=== PATIENT | female | born 1975 | race Caucasian/White ===

== ENCOUNTER 2016-10-21 16:29 | Emergency (ER) | payer BC ==
[~2016-10-21] VITALS: Ht 152.4 cm; Wt 40.8 kg
[~2016-10-21 16:29] MED LIST: PRED20TA PO
[2016-10-21 16:51] VITALS: BP 134/75
--- NOTE | 2016-10-21 17:12 | PHYS DOC ---
Past Medical History Past Medical History: Anxiety, Arthritis, Kidney Infection, Kidney Stone Additional Past Medical Histor: lupus Past Surgical History: Alcohol Use: Occasionally Drug Use: None Adult General Chief Complaint Chief Complaint: OTHER COMPLAINTS [facility] HPI Patient is a 41 year old female presents emergency department stating that she' s been bilateral abdominal pain and discomfort. Patient states she has a history of lupus which causes her osteoarthritis to have increased difficulty with movement. Patient states that she's taken 3 oxycodone this morning without any relief. Patient states that she also had a temperature of 102 this morning as well. She denies any nausea vomiting or diarrhea. She does state that she's been seen her primary care physician for pain management. She has also been referred to to the lupus specialist in which she has a follow-up in November. Patient states that she had taken Aleve as well as this morning with no relief. Significant other at the bedside states that he is unable to get her to straighten her arms although she has been able to place her hand down in between bilateral extended knees. Patient does have redness noted on bilateral elbows no drainage or discharge noted. Peripheral pulses 2+ cap refill brisk less than 2 seconds. Patient denies trauma, or injury to the elbows. Review of Systems Review of Systems Constitutional: Denies fever or chills [] Eyes: Denies change in visual acuity, redness, or eye pain [] HENT: Denies nasal congestion or sore throat [] Respiratory: Denies cough or shortness of breath [] Cardiovascular: No additional information not addressed in HPI [] GI: Denies abdominal pain, nausea, vomiting, bloody stools or diarrhea [] : Denies dysuria or hematuria [] Musculoskeletal: Denies back pain. Bilateral elbow pain and discomfort Integument: Denies rash or skin lesions [] Neurologic: Denies headache, focal weakness or sensory changes [] Current Medications Current Medications Current Medications Medications (Trade) Dose Ordered Sig/[facility] Start Time Stop Time Status Last Admin Dose Admin Morphine Sulfate 4 mg 1X ONCE 10/21/16 17:15 10/21/16 17:16 DC 10/21/16 17:22 4 MG Allergies Allergies Allergies Coded Allergies Type Severity Reaction Last Updated Verified No Known Drug Allergies 10/21/16 No Physical Exam Physical Exam Constitutional: Well developed, well nourished, no acute distress, non-toxic appearance. [] HENT: Normocephalic, atraumatic, bilateral external ears normal, oropharynx moist, no oral exudates, nose normal. [] Eyes: PERRLA, EOMI, conjunctiva normal, no discharge. [] Neck: Normal range of motion, no tenderness, supple, no stridor. [] Cardiovascular:Heart rate regular rhythm, no murmur [] Lungs & Thorax: Bilateral breath sounds clear to auscultation [] [] Skin: Warm, dry, no erythema, no rash. [] Back: No tenderness Extremities: Bilateral elbow tenderness, no cyanosis, no clubbing, ROM intact, no edema. Slight redness noted on bilateral elbows. No drainage or discharge from the sites. He is to feel extremely warm. Patient does have full range of motion of the elbows. This 2+ cap refill brisk less than 2 seconds. Neurologic: Alert and oriented X 3, normal motor function, normal sensory function, no focal deficits noted. [] Psychologic: Affect normal, judgement normal, mood normal. [] Current Patient Data Vital Signs Vital Signs Date Time Temp Pulse Resp B/P Pulse Ox O2 Delivery O2 Flow Rate FiO2 10/21/16 16:51 98.0 77 20 100 Room Air 98.0 Lab Values Laboratory Tests Test 10/21/16 17:15 White Blood Count 10.1x10^3/uL (4.0-11.0) Red Blood Count 4.41x10^6/uL (3.50-5.40) Hemoglobin 10.6g/dL (12.0-15.5) L Hematocrit 35.3% (36.0-47.0) L Mean Corpuscular Volume 80fL (79-100) Mean Corpuscular Hemoglobin 24pg (25-35) L Mean Corpuscular Hemoglobin Concent 30g/dL (31-37) L Red Cell Distribution Width 19.7% (11.5-14.5) H Platelet Count 291x10^3/uL (140-400) Neutrophils (%) (Auto) 90% (31-73) H Lymphocytes (%) (Auto) 7% (24-48) L Monocytes (%) (Auto) 2% (0-9) Eosinophils (%) (Auto) 0% (0-3) Basophils (%) (Auto) 0% (0-3) Neutrophils # (Auto) 9.1x10^3uL (1.8-7.7) H Lymphocytes # (Auto) 0.8x10^3/uL (1.0-4.8) L Monocytes # (Auto) 0.2x10^3/uL (0.0-1.1) Eosinophils # (Auto) 0.0x10^3/uL (0.0-0.7) Basophils # (Auto) 0.0x10^3/uL (0.0-0.2) Platelet Estimate Pending Erythrocyte Sedimentation Rate 75 (0-25) H C-Reactive Protein, Quantitative 83.9mg/L (0-3.3) H Laboratory Tests 10/21/16 17:15 EKG EKG [] Radiology/Procedures Radiology/Procedures [] Course & Med Decision Making Course & Med Decision Making Pertinent Labs and Imaging studies reviewed. (See chart for details) Patient was asleep upon entering the room. She is easily awakened. Patient's CBC with a white count normal hemoglobin and hematocrit are slightly low although this is comparable to previous CBCs in the past. Patient does have a history of anemia probably secondary to chronic medical conditions. Patient's sedimentation rate and CRP are both elevated. I suspect the patient is having a flareup of her lupus. Patient states that she is taking 10 mg of prednisone at home. She does have asked the coded at home in which she can take for pain and discomfort. Recommended nonsteroidal anti-inflammatories. Patient will be discharged home with recommendations to follow-up with her primary care physician in the next 3-5 days. Signs and symptoms to return back to emergency department been provided. [] Dragon Disclaimer Dragon Disclaimer This electronic medical record was generated, in whole or in part, using a voice recognition dictation system. Departure Departure Impression: Primary Impression: Exacerbation of systemic lupus Disposition: HOME, SELF-CARE Condition: STABLE Referrals: TORIBIO TINOCO MD (PCP) Patient Instructions: Chronic Pain, Lupus Additional Instructions: You have been evaluated for your bilateral elbow pain and discomfort. Your sed rate was elevated your CRP lab work was elevated identifying that you are having a flareup of your lupus. You have also been provided with morphine here in the emergency department for pain control. It is recommended that you continue to use her home medications for pain. You may also use naproxen as prescribed. Make sure you take this medication with food as it may cause an upset stomach. If this develops stop taking the medication. Follow-up with your primary care physician next 3-5 days. Return back to the emergency department for signs and symptoms of become worse. Scripts Naproxen 500 Mg Tablet1 Tab PO BID #60 TAB Prov:SARAH LEYVA APRN 10/21/16 SARAH LEYVA APRN Oct 21, 2016 17:12
[2016-10-21] MEDS ORDERED: MORPHINE SULFATE 4 MG/ML DISP.SYRIN. IM ONE (17:15)
[2016-10-21 17:21] LABS: BASO % 0 % (0-3); EOS % 0 % (0-3); HEMATOCRIT 35.3 % (36.0-47.0); HEMOGLOBIN 10.6 g/dL (12.0-15.5); LYMPH # 0.8 x10^3/uL (1.0-4.8); LYMPH % 7 % (24-48); MEAN CORPUSCULAR HEMOGLOBIN 24 pg (25-35); MEAN CORPUSCULAR HGB CONC 30 g/dL (31-37); MEAN CORPUSCULAR VOLUME 80 fL (79-100); MONO % 2 % (0-9); NEUT % 90 % (31-73); PLATELET COUNT 291 x10^3/uL (140-400); RED BLOOD COUNT 4.41 x10^6/uL (3.50-5.40); RED CELL DISTRIBUTION WIDTH 19.7 % (11.5-14.5); WHITE BLOOD COUNT 10.1 x10^3/uL (4.0-11.0)
[2016-10-21] MEDS ORDERED: NAPR500T3 PO (18:55)
[2016-10-21 19:32] LABS: ANISOCYTOSIS SLIGHT; HYPOCHROMIA SLIGHT; OVALOCYTES OCC; PLT ESTIMATE ADEQUATE (ADEQUATE); POLYCHROMASIA SLIGHT
== END 2016-10-21 19:02 | disposition home or self-care (01) ==
LOC: ER 16:29
DX: M32.9 Systemic lupus erythematosus, unspecified (principal); M19.90 Unspecified osteoarthritis, unspecified site
CPT/HCPCS: 36415; 85007; 85027; 85651; 86140; 96372; 99284; J2270

== ENCOUNTER 2017-03-25 19:44 | Emergency (ER) | payer BC ==
[~2017-03-25] VITALS: Ht 152.4 cm; Wt 40.4 kg
[~2017-03-25 19:44] MED LIST changes: +NAPR500T3 PO
[2017-03-25 20:02] VITALS: BP 87/56
[2017-03-25] MEDS ORDERED: DIPHTH,PERTUSS(ACELL),TET TOX 0.5 ML DISP.SYRIN. VAX IM ONE (20:30)
[2017-03-25] MEDS ORDERED: LIDOCAINE 1% / SOD BICARB 8.4% 20 ML VIAL. IJ ONE (20:30)
[2017-03-25] MEDS ORDERED: CEPH500C PO (21:55)
--- NOTE | 2017-03-25 21:56 | PHYS DOC ---
Past Medical History Past Medical History: Anxiety, Arthritis, Kidney Infection, Kidney Stone Additional Past Medical Histor: lupus Past Surgical History: Alcohol Use: Occasionally Drug Use: None Adult General Chief Complaint Chief Complaint: LACERATION/AVULSION HPI HPI Patient is a 41 year old female who presents with with history of lupus currently on infusions who presents today with left palm laceration. Patient cut herself accidentally on a ladder bolt, she is right handed. Review of Systems Review of Systems Constitutional: Denies fever or chills [] Musculoskeletal: Denies back pain or joint pain [] Integument: left palm laceration Neurologic: Denies headache, focal weakness or sensory changes [] Current Medications Current Medications Current Medications Medications (Trade) Dose Ordered Sig/Keo Start Time Stop Time Status Last Admin Dose Admin Diphtheria/ Tetanus/Acell Pertussis (Boostrix) 0.5 ml ONCE ONCE 03/25/17 20:30 03/25/17 20:31 DC 03/25/17 20:32 0.5 ML Lidocaine/Sodium Bicarbonate (Buffered Lidocaine 1%) 20 ml 1X ONCE 03/25/17 20:30 03/25/17 20:31 DC 03/25/17 20:31 20 ML Allergies Allergies Allergies Coded Allergies Type Severity Reaction Last Updated Verified No Known Drug Allergies 10/21/16 No Physical Exam Physical Exam Constitutional: Well developed, well nourished, no acute distress, non-toxic appearance. [] Skin: Left hypothenar with a laceration approximately 3 cm long, there is no tendon involvement. Full range of motion to the left hand and fingers. +2 left radial pulse. Adequate radial medial and ulnar sensation to the left hand. Back: No tenderness, no CVA tenderness. [] Extremities: No tenderness, no cyanosis, no clubbing, ROM intact, no edema. [] Neurologic: Alert and oriented X 3, normal motor function, normal sensory function, no focal deficits noted. [] Psychologic: Affect normal, judgement normal, mood normal. [] Current Patient Data Vital Signs Vital Signs Date Time Temp Pulse Resp B/P (MAP) Pulse Ox O2 Delivery O2 Flow Rate FiO2 03/25/17 20:02 98.2 80 20 99 Room Air 98.2 EKG EKG [] Radiology/Procedures Radiology/Procedures Indication: Left palm laceration Procedure: The patient was placed in the appropriate position and anesthesia around the laceration was 1% buffered lidocaine, the area was explored for foreign objects, none was found. The area was then cleaned with the 100 ML of normal saline and Betadine. The laceration was closed with 9 interrupted sutures using 5. 0 Ethilon. The wound was covered with nonstick dressing Total repaired wound length: Approximately 3 cm long Other Items: none The patient tolerated the procedure well Complications: none Course & Med Decision Making Course & Med Decision Making Pertinent Labs and Imaging studies reviewed. (See chart for details) Patient has left hand laceration that was closed by me as noted in procedures. Discharged on cephalexin because she has lupus and she is currently on infusions. Provided wound care instructions as well as return precautions. Dragon Disclaimer Dragon Disclaimer This electronic medical record was generated, in whole or in part, using a voice recognition dictation system. Departure Departure Impression: Primary Impression: Laceration of left hand Disposition: HOME, SELF-CARE Condition: STABLE Referrals: TORIBIO TINOCO MD (PCP) Have the stitches removed in 7-10 days Patient Instructions: Laceration Care, Adult, [id number] Additional Instructions: You were seen for left hand laceration. Keep the area clean and dry. We closed the laceration with stitches. Apply Neosporin to the area twice a day. You can shower. Take cephalexin until completed. Monitor the area for signs and symptoms of infection including but not limited to increased redness to the area ,warmth or yellow drainage from the area and follow-up with your doctor or return to the ED if they occur. Scripts Cephalexin (CEPHALEXIN) 500 Mg Capsule 1 CAP PO QID, #40 CAP Prov: ZOHAIB ALFREDO APRN 03/25/17 Problem Qualifiers Primary Impression: Laceration of left hand Encounter type: initial encounter Foreign body presence: without foreign body Qualified Codes: S61.412A - Laceration without foreign body of left hand , initial encounter ZOHAIB ALFREDO APRN Mar 25, 2017 21:56
== END 2017-03-25 22:06 | disposition home or self-care (01) ==
LOC: ER 19:44
DX: S61.412A Laceration without foreign body of left hand, initial encounter (principal); F41.9 Anxiety disorder, unspecified; M32.9 Systemic lupus erythematosus, unspecified; M19.90 Unspecified osteoarthritis, unspecified site; W26.8XXA Contact with other sharp object(s), not elsewhere classified, initial encounter; Y93.89 Activity, other specified; Y92.89 Other specified places as the place of occurrence of the external cause; Y99.8 Other external cause status
CPT/HCPCS: 12002; 90471; 90715; 99283-25

== ENCOUNTER 2017-11-10 08:35 | Emergency (ER) | payer BC ==
[2017-11-10] MEDS: IV NORMAL SALINE 500ML BAG 500 ML IV (09:04)
[2017-11-10 09:11] LABS: ADD MAN DIFF? NO
[2017-11-10 09:32] LABS: ANION GAP 13 (6-14); BLOOD UREA NITROGEN 12 mg/dL (7-20); CALCIUM 9.4 mg/dL (8.5-10.1); CARBON DIOXIDE 21 mmol/L (21-32); CHLORIDE 104 mmol/L (98-107); CREATININE 1.2 mg/dL (0.6-1.0); GLUCOSE 150 mg/dL (70-99); POTASSIUM 3.7 mmol/L (3.5-5.1); SODIUM 138 mmol/L (136-145)
[2017-11-10 09:38] LABS: ALBUMIN 3.3 g/dL (3.4-5.0); ALK PHOS 106 U/L (46-116); ALT (SGPT) 16 U/L (14-59); AST (SGOT) 14 U/L (15-37); DIRECT BILIRUBIN 0.1 mg/dL (0.0-0.2); LIPASE 368 U/L (73-393); TOTAL BILIRUBIN 0.2 mg/dL (0.2-1.0); TOTAL PROTEIN 8.1 g/dL (6.4-8.2)
[2017-11-10 09:47] LABS: BASO % 0 % (0-3); EOS # 0.1 x10^3/uL (0.0-0.7); EOS % 1 % (0-3); HEMATOCRIT 38.2 % (36.0-47.0); HEMOGLOBIN 10.9 g/dL (12.0-15.5); LYMPH # 1.5 x10^3/uL (1.0-4.8); LYMPH % 10 % (24-48); MEAN CORPUSCULAR HEMOGLOBIN 19 pg (25-35); MEAN CORPUSCULAR HGB CONC 29 g/dL (31-37); MEAN CORPUSCULAR VOLUME 66 fL (79-100); MONO # 0.7 x10^3/uL (0.0-1.1); MONO % 5 % (0-9); NEUT # 12.3 x10^3uL (1.8-7.7); NEUT % 85 % (31-73); PLATELET COUNT 415 x10^3/uL (140-400); RED BLOOD COUNT 5.75 x10^6/uL (3.50-5.40); RED CELL DISTRIBUTION WIDTH 23.1 % (11.5-14.5); WHITE BLOOD COUNT 14.6 x10^3/uL (4.0-11.0)
[2017-11-10 09:48] LABS: TROPONINI < 0.017 ng/mL (0.000-0.055)
[2017-11-10 10:20] LABS: PLT ESTIMATE INCREASED (ADEQUATE)
[2017-11-10 10:21] LABS: ANISOCYTOSIS MOD; MICROCYTOSIS PRESENT; POLYCHROMASIA SLIGHT
== END 2017-11-10 10:55 | disposition home or self-care (01) ==
LOC: ER 08:35
DX: R05 Cough (principal); F41.9 Anxiety disorder, unspecified; R00.0 Tachycardia, unspecified; M06.9 Rheumatoid arthritis, unspecified; Z87.442 Personal history of urinary calculi
CPT/HCPCS: 36415; 71045; 80048; 80076; 83690; 84484; 85025; 93005; 99285-25; J7040

== ENCOUNTER 2019-03-20 16:14 | Emergency (ER) | payer BC ==
[~2019-03-20] VITALS: Ht 152.4 cm; Wt 43.1 kg
[~2019-03-20 16:14] MED LIST changes: +ALBU2.5V8 INH; +CEPH500C PO; +DOXY100C14 PO; +NAPR-514 PO; -NAPR500T3 PO
[2019-03-20 16:29] VITALS: BP 102/58
[2019-03-20] MEDS ORDERED: HYDROcodone/APAP 5/325MG 1 TAB TABLET PO ONE (16:45)
--- NOTE | 2019-03-20 16:47 | PHYS DOC ---
Past Medical History Past Medical History: Anxiety, Arthritis, Kidney Infection, Kidney Stone Additional Past Medical Histor: lupus Past Surgical History: Alcohol Use: Occasionally Drug Use: None Adult General Chief Complaint Chief Complaint: HAND PROBLEM HPI HPI Patient is a 43 year old [female] who presents with []right hand pain. Patient reports her family member had gotten a new car, she had her hand on the door, when the door closed, pinching between her hand between the door and the car. Reports it occurred one hour ago the pain continues at this time. States she has not taken any medications for it, she has been using an icepack, which does seem to be helping a little bit. Review of Systems Review of Systems Constitutional: Denies fever or chills [] Respiratory: Denies cough or shortness of breath [] Cardiovascular: No additional information not addressed in HPI [] Musculoskeletal: Denies back pain or joint pain, reports pain to right hand, near 2nd and 3rd digit [] Integument: Denies rash or skin lesions [] Neurologic: Denies focal weakness or sensory changes [] All other systems were reviewed and found to be within normal limits, except as documented in this note. Current Medications Current Medications Current Medications Medications (Trade) Dose Ordered Sig/Keo Start Time Stop Time Status Last Admin Dose Admin Acetaminophen/ Hydrocodone Bitart (Lortab 5/325) 1 tab 1X ONCE 03/20/19 16:45 03/20/19 16:46 DC 03/20/19 17:01 1 TAB Allergies Allergies Allergies Coded Allergies Type Severity Reaction Last Updated Verified No Known Drug Allergies 11/10/17 No Physical Exam Physical Exam Constitutional: Well developed, well nourished, no acute distress, appears uncomfortable, non-toxic appearance. [] Abdomen: Bowel sounds normal, soft, no tenderness, no masses, no pulsatile masses. [] Skin: Warm, dry, no erythema, generalized rash. Small amount of bleeding noted palmar at base of fingers.capillary refill brisk. sensation intact. [] Back: No tenderness, no CVA tenderness. [] Extremities: No tenderness, no cyanosis, no clubbing,. Swelling noted to index and middle finger at base of hand, with bruising, tenderness. [] Neurologic: Alert and oriented X 3, normal motor function, normal sensory function, no focal deficits noted. [] Psychologic: Affect normal, judgement normal, mood normal. [] Current Patient Data Vital Signs Vital Signs Date Time Temp Pulse Resp B/P (MAP) Pulse Ox O2 Delivery O2 Flow Rate FiO2 03/20/19 17:01 18 97 03/20/19 16:29 98.7 63 102/58 (73) Room Air 98.7 EKG EKG [] Radiology/Procedures Radiology/Procedures AP lateral oblique views The visualized osseous structures appear normal. IMPRESSION: No acute findings. Electronically signed by: Melissa Ventura III, MD (03/20/2019 5:03 PM) [id number] DICTATED and SIGNED BY: MELISSA VENTURA III, MD DATE: 03/20/19 [id number] [] Course & Med Decision Making Course & Med Decision Making Pertinent Labs and Imaging studies reviewed. (See chart for details) [Discussed findings with patient, with no noted fractures. Discussed follow up with PCP, use of ice, ibuprofen, tylenol. Patient in agreement with plan. Discussed abrasions on hand without active bleeding noted now, recommend keep clean. ] Dragon Disclaimer Dragon Disclaimer This electronic medical record was generated, in whole or in part, using a voice recognition dictation system. Departure Departure Impression: Primary Impression: Right hand pain Disposition: 01 HOME, SELF-CARE Condition: GOOD Referrals: DANIA PANDEY MD (PCP) Patient Instructions: Contusion Additional Instructions: Continue to use the ice pack. Use tylenol/ibuprofen for discomfort Clean your hand with soap and water, you do not need any stitches in your hand today Follow up with your primary care provider as needed DAVID DOHERTY APRN Mar 20, 2019 16:47
--- NOTE | 2019-03-20 17:06 | RAD ---
3 views right hand HISTORY: Crush injury AP lateral oblique views The visualized osseous structures appear normal. IMPRESSION: No acute findings. Electronically signed by: John Ventura III, MD (03/20/2019 5:03 PM) [id number]
== END 2019-03-20 17:53 | disposition home or self-care (01) ==
LOC: ER 16:14
DX: S60.221A Contusion of right hand, initial encounter (principal); W23.0XXA Caught, crushed, jammed, or pinched between moving objects, initial encounter; Y93.89 Activity, other specified; Y92.89 Other specified places as the place of occurrence of the external cause; Y99.8 Other external cause status
CPT/HCPCS: 73130; 99284

== ENCOUNTER 2019-07-02 00:29 | Emergency (ER) | payer BC ==
[~2019-07-02] VITALS: Ht 152.4 cm; Wt 42.6 kg
[2019-07-02 01:13] LABS: BILIRUBIN,URINE NEGATIVE (NEG); CLARITY,URINE CLEAR; COLOR,URINE YELLOW; NITRITE,URINE NEGATIVE (NEG); PROTEIN,URINE NEGATIVE (NEG-TRACE); UROBILINOGEN,URINE 0.2 mg/dL (0.2 mg/dL)
[2019-07-02 01:24] LABS: BASO % 1 % (0-3); EOS # 0.1 x10^3/uL (0.0-0.7); EOS % 4 % (0-3); HEMATOCRIT 45.7 % (36.0-47.0); HEMOGLOBIN 15.2 g/dL (12.0-15.5); LYMPH # 1.1 x10^3/uL (1.0-4.8); LYMPH % 36 % (24-48); MEAN CORPUSCULAR HEMOGLOBIN 32 pg (25-35); MEAN CORPUSCULAR HGB CONC 33 g/dL (31-37); MEAN CORPUSCULAR VOLUME 95 fL (79-100); MONO # 0.3 x10^3/uL (0.0-1.1); MONO % 9 % (0-9); NEUT # 1.5 x10^3/uL (1.8-7.7); NEUT % 50 % (31-73); PLATELET COUNT 167 x10^3/uL (140-400); RED BLOOD COUNT 4.83 x10^6/uL (3.50-5.40)
[2019-07-02 01:26] LABS: U PREG PATIENT NEGATIVE (NEG)
[2019-07-02 01:29] LABS: BACTERIA,URINE FEW /HPF (0-FEW); SQUAMOUS EPITHELIAL CELL,UR FEW /LPF
[2019-07-02] MEDS ORDERED: KETOROLAC 15 MG/ML VIAL. IVP ONE (01:30)
[2019-07-02] MEDS ORDERED: IV NORMAL SALINE 1000ML BAG 1,000 ML IV ONE (01:30)
[2019-07-02] MEDS ORDERED: fentaNYL PF VIAL 100 MCG/2 ML VIAL IVP ONE (01:30)
[2019-07-02] MEDS ORDERED: METOCLOPRAMIDE HCL 10 MG/2 ML VIAL. IVP ONE (01:30)
[2019-07-02 01:32] LABS: CALCIUM 9.3 mg/dL (8.5-10.1); POTASSIUM 3.2 mmol/L (3.5-5.1)
[2019-07-02 01:38] LABS: ALBUMIN 2.9 g/dL (3.4-5.0); ALBUMIN/GLOBULIN RATIO 0.6 (1.0-1.7); MAGNESIUM 2.2 mg/dL (1.8-2.4); TOTAL BILIRUBIN 0.1 mg/dL (0.2-1.0); TOTAL PROTEIN 7.9 g/dL (6.4-8.2)
--- NOTE | 2019-07-02 01:49 | PHYS DOC ---
Past Medical History Past Medical History: Anxiety, Arthritis, Kidney Infection, Kidney Stone Additional Past Medical Histor: lupus Past Surgical History: No Surgical History, , Tubal ligation Alcohol Use: Occasionally Drug Use: None Adult General Chief Complaint Chief Complaint: FLANK PAIN HPI HPI Patient is a 44 year old [f__sex] who presents with [] Review of Systems Review of Systems Constitutional: Denies fever or chills [] Eyes: Denies change in visual acuity, redness, or eye pain [] HENT: Denies nasal congestion or sore throat [] Respiratory: Denies cough or shortness of breath [] Cardiovascular: No additional information not addressed in HPI [] GI: Denies abdominal pain, nausea, vomiting, bloody stools or diarrhea [] : Denies dysuria or hematuria [] Musculoskeletal: Denies back pain or joint pain [] Integument: Denies rash or skin lesions [] Neurologic: Denies headache, focal weakness or sensory changes [] Endocrine: Denies polyuria or polydipsia [] All other systems were reviewed and found to be within normal limits, except as documented in this note. Current Medications Current Medications Current Medications Medications (Trade) Dose Ordered Sig/Keo Start Time Stop Time Status Last Admin Dose Admin Ceftriaxone Sodium (Rocephin) 1 gm 1X ONCE 07/02/19 02:00 07/02/19 02:01 Fentanyl Citrate (Fentanyl 2ml Vial) 50 mcg 1X ONCE 07/02/19 01:30 07/02/19 01:31 DC 07/02/19 01:23 50 MCG Ketorolac Tromethamine (Toradol 15mg Vial) 15 mg 1X ONCE 07/02/19 01:30 07/02/19 01:31 DC 07/02/19 01:24 15 MG Metoclopramide HCl (Reglan Vial) 10 mg 1X ONCE 07/02/19 01:30 07/02/19 01:31 DC 07/02/19 01:23 10 MG Sodium Chloride 1,000 ml @ 1,000 mls/hr 1X ONCE 07/02/19 01:30 07/02/19 02:29 07/02/19 01:23 1,000 MLS/HR Allergies Allergies Allergies Coded Allergies Type Severity Reaction Last Updated Verified No Known Drug Allergies 11/10/17 No Physical Exam Physical Exam Constitutional: Well developed, well nourished, no acute distress, non-toxic appearance. [] HENT: Normocephalic, atraumatic, bilateral external ears normal, oropharynx m oist, no oral exudates, nose normal. [] Eyes: PERRLA, EOMI, conjunctiva normal, no discharge. [] Neck: Normal range of motion, no tenderness, supple, no stridor. [] Cardiovascular:Heart rate regular rhythm, no murmur [] Lungs & Thorax: Bilateral breath sounds clear to auscultation [] Abdomen: Bowel sounds normal, soft, no tenderness, no masses, no pulsatile masses. [] Skin: Warm, dry, no erythema, no rash. [] Back: No tenderness, no CVA tenderness. [] Extremities: No tenderness, no cyanosis, no clubbing, ROM intact, no edema. [] Neurologic: Alert and oriented X 3, normal motor function, normal sensory function, no focal deficits noted. [] Psychologic: Affect normal, judgement normal, mood normal. [] Current Patient Data Vital Signs Vital Signs Date Time Temp Pulse Resp B/P (MAP) Pulse Ox O2 Delivery O2 Flow Rate FiO2 07/02/19 00:50 97.8 89 20 119/82 (94) 97 Room Air 97.8 Lab Values Laboratory Tests Test 07/02/19 00:36 07/02/19 01:15 Urine Collection Type Unknown Urine Color Yellow Urine Clarity Clear Urine pH 7.0 Urine Specific [place] 1.010 Urine Protein Negative mg/dL (NEG-TRACE) Urine Glucose (UA) Negative mg/dL (NEG) Urine Ketones (Stick) Negative mg/dL (NEG) Urine Blood Moderate (NEG) Urine Nitrite Negative (NEG) Urine Bilirubin Negative (NEG) Urine Urobilinogen Dipstick 0.2 mg/dL (0.2 mg/dL) Urine Leukocyte Esterase Moderate (NEG) Urine RBC 11-20 /HPF (0-2) Urine WBC 11-20 /HPF (0-4) Urine Squamous Epithelial Cells Few /LPF Urine Bacteria Few /HPF (0-FEW) Urine Mucus Slight /LPF Urine Test Negative (NEG) White Blood Count 3.0 x10^3/uL (4.0-11.0) L Red Blood Count 4.83 x10^6/uL (3.50-5.40) Hemoglobin 15.2 g/dL (12.0-15.5) Hematocrit 45.7 % (36.0-47.0) Mean Corpuscular Volume 95 fL (79-100) Mean Corpuscular Hemoglobin 32 pg (25-35) Mean Corpuscular Hemoglobin Concent 33 g/dL (31-37) Red Cell Distribution Width 14.0 % (11.5-14.5) Platelet Count 167 x10^3/uL (140-400) Neutrophils (%) (Auto) 50 % (31-73) Lymphocytes (%) (Auto) 36 % (24-48) Monocytes (%) (Auto) 9 % (0-9) Eosinophils (%) (Auto) 4 % (0-3) H Basophils (%) (Auto) 1 % (0-3) Neutrophils # (Auto) 1.5 x10^3/uL (1.8-7.7) L Lymphocytes # (Auto) 1.1 x10^3/uL (1.0-4.8) Monocytes # (Auto) 0.3 x10^3/uL (0.0-1.1) Eosinophils # (Auto) 0.1 x10^3/uL (0.0-0.7) Basophils # (Auto) 0.0 x10^3/uL (0.0-0.2) Sodium Level 140 mmol/L (136-145) Potassium Level 3.2 mmol/L (3.5-5.1) L Chloride Level 107 mmol/L (98-107) Carbon Dioxide Level 19 mmol/L (21-32) L Anion Gap 14 (6-14) Blood Urea Nitrogen 17 mg/dL (7-20) Creatinine 1.0 mg/dL (0.6-1.0) Estimated GFR (Cockcroft-Gault) 60.0 BUN/Creatinine Ratio 17 (6-20) Glucose Level 117 mg/dL (70-99) H Calcium Level 9.3 mg/dL (8.5-10.1) Magnesium Level 2.2 mg/dL (1.8-2.4) Total Bilirubin 0.1 mg/dL (0.2-1.0) L Aspartate Amino Transferase (AST) 14 U/L (15-37) L Alanine Aminotransferase (ALT) 8 U/L (14-59) L Alkaline Phosphatase 93 U/L (46-116) Total Protein 7.9 g/dL (6.4-8.2) Albumin 2.9 g/dL (3.4-5.0) L Albumin/Globulin Ratio 0.6 (1.0-1.7) L Lipase 151 U/L (73-393) Laboratory Tests 07/02/19 01:15 Laboratory Tests 07/02/19 01:15 EKG EKG [] Radiology/Procedures Radiology/Procedures PROCEDURE: CT ABDOMEN PELVIS WO CONTRAST INDICATION: Left flank pain EXAM: Noncontrast CT of the abdomen and pelvis. Coronal and sagittal reformatted images were performed. PQRS compliance statement: One or more of the following individualized dose reduction techniques were utilized for this examination: 1. Automated exposure control 2. Adjustment of the mA and/or kV according to patient size 3. Use of iterative reconstruction technique COMPARISON: None FINDINGS: No free air, free fluid, or fluid collection. Lower chest: The visualized lower lungs are aerated. No pleural or pericardial effusion. ABDOMEN: Liver: The noncontrast liver is homogeneous in attenuation. Gallbladder and biliary: Cholelithiasis. Normal caliber bile ducts. Spleen: Normal spleen. Pancreas: The noncontrast pancreas is homogeneous in attenuation without peripancreatic inflammatory changes. Adrenal glands: Normal adrenal glands. Kidneys and ureters: Bilateral medullary nephrocalcinosis. GI tract: The stomach is decompressed and poorly evaluated. Normal caliber small bowel and colon. Normal appendix. Moderate colonic stool burden. Vascular structures: Normal caliber abdominal aorta. Lymph nodes: No lymphadenopathy in the abdomen or pelvis. PELVIS: Genitourinary system: Normal bladder. Uterus is present. SKELETAL STRUCTURES AND SOFT TISSUES: Serpiginous subchondral sclerosis along the bilateral femoral heads. IMPRESSION: 1. No hydronephrosis or opaque urinary calculi. Bilateral medullary nephrocalcinosis. 2. Moderate colonic stool burden, which may reflect constipation. 3. Cholelithiasis. 4. Avascular necrosis of the hips. Electronically signed by: Chaz Nails MD (07/02/2019 1:49 AM) [facility] Course & Med Decision Making Course & Med Decision Making Pertinent Labs and Imaging studies reviewed. (See chart for details) [] Dragon Disclaimer Dragon Disclaimer This electronic medical record was generated, in whole or in part, using a voice recognition dictation system. Departure Departure Impression: Primary Impression: Pyelonephritis Additional Impressions: Hypokalemia Neutropenia Constipation Disposition: 01 HOME, SELF-CARE Condition: STABLE Referrals: DANIA PANDEY MD (PCP) Patient Instructions: Constipation, Adult, [id number], Hypokalemia-Brief, Neutropenia, Potassium Content of Foods, Pyelonephritis, Adult, [id number] Scripts Polyethylene Glycol 3350 (MIRALAX) 17 Gm Powd.pack 1 PACKET PO DAILY PRN for CONSTIPATION, #10 PACKET 0 Refills dissolve in water Prov: SHAE BETANCOURT DO 07/02/19 Sennosides/Docusate Sodium (Colace 2-in-1 Tablet) 1 Each Tablet 1 TAB PO QHS for 30 Days, #30 TAB 0 Refills Prov: SHAE BETANCOURT DO 07/02/19 Cephalexin (KEFLEX) 500 Mg Capsule 500 MG PO TID for 7 Days, #21 CAP Prov: SHAE BETANCOURT DO 07/02/19 Problem Qualifiers Additional Impressions: Neutropenia Neutropenia type: unspecified Qualified Codes: D70.9 - Neutropenia, unsp ecified Constipation Constipation type: unspecified constipation type Qualified Codes: K59.00 - Constipation, unspecified SHAE BETANCOURT DO Jul 02, 2019 01:49
--- NOTE | 2019-07-02 01:52 | RAD ---
CT ABDOMEN PELVIS WO CONTRAST INDICATION: Left flank pain EXAM: Noncontrast CT of the abdomen and pelvis. Coronal and sagittal reformatted images were performed. PQRS compliance statement: One or more of the following individualized dose reduction techniques were utilized for this examination: 1. Automated exposure control 2. Adjustment of the mA and/or kV according to patient size 3. Use of iterative reconstruction technique COMPARISON: None FINDINGS: No free air, free fluid, or fluid collection. Lower chest: The visualized lower lungs are aerated. No pleural or pericardial effusion. ABDOMEN: Liver: The noncontrast liver is homogeneous in attenuation. Gallbladder and biliary: Cholelithiasis. Normal caliber bile ducts. Spleen: Normal spleen. Pancreas: The noncontrast pancreas is homogeneous in attenuation without peripancreatic inflammatory changes. Adrenal glands: Normal adrenal glands. Kidneys and ureters: Bilateral medullary nephrocalcinosis. GI tract: The stomach is decompressed and poorly evaluated. Normal caliber small bowel and colon. Normal appendix. Moderate colonic stool burden. Vascular structures: Normal caliber abdominal aorta. Lymph nodes: No lymphadenopathy in the abdomen or pelvis. PELVIS: Genitourinary system: Normal bladder. Uterus is present. SKELETAL STRUCTURES AND SOFT TISSUES: Serpiginous subchondral sclerosis along the bilateral femoral heads. IMPRESSION: 1. No hydronephrosis or opaque urinary calculi. Bilateral medullary nephrocalcinosis. 2. Moderate colonic stool burden, which may reflect constipation. 3. Cholelithiasis. 4. Avascular necrosis of the hips. Electronically signed by: Chaz Nails MD (07/02/2019 1:49 AM) [id number]
[2019-07-02] MEDS ORDERED: POLY17PO29 PO (01:59)
[2019-07-02] MEDS ORDERED: CEPH-264 PO (01:59)
[2019-07-02] MEDS ORDERED: SENN-121 PO (01:59)
[2019-07-02 02:00] VITALS: BP 106/71
[2019-07-02] MEDS ORDERED: cefTRIAXone IV Push 1 GM VIAL. IVP ONE (02:00)
[2019-07-02] MEDS ORDERED: POTASSIUM CHLORIDE 20 MEQ TABLET.ER. PO ONE (02:30)
== END 2019-07-02 02:18 | disposition home or self-care (01) ==
LOC: ER 00:29
DX: N12 Tubulo-interstitial nephritis, not specified as acute or chronic (principal); E87.6 Hypokalemia; D70.9 Neutropenia, unspecified; K59.00 Constipation, unspecified; F41.9 Anxiety disorder, unspecified; M19.90 Unspecified osteoarthritis, unspecified site; N15.9 Renal tubulo-interstitial disease, unspecified; Z87.442 Personal history of urinary calculi; Z98.890 Other specified postprocedural states; Z98.51 Tubal ligation status; Z79.899 Other long term (current) drug therapy
CPT/HCPCS: 36415; 74176; 80053; 81001; 81025; 83690; 83735; 85025; 87086; 96374; 96375; 99285; J0696; J1885; J2765; J3010; J7030

== ENCOUNTER 2019-09-21 16:28 | Emergency (ER) | payer BC ==
[~2019-09-21] VITALS: Ht 152.4 cm; Wt 38.6 kg
[~2019-09-21 16:28] MED LIST changes: +CEPH-264 PO; +POLY17PO29 PO; +SENN-121 PO
[2019-09-21 17:02] VITALS: BP 129/77
--- NOTE | 2019-09-21 17:25 | PHYS DOC ---
Past Medical History Past Medical History: Anxiety, Arthritis, Kidney Infection, Kidney Stone Additional Past Medical Histor: lupus Past Surgical History: , Tubal ligation Smoking Status: Current Every Day Smoker Alcohol Use: Occasionally Drug Use: None Adult General Chief Complaint Chief Complaint: HAND PROBLEM HPI HPI Patient is a 44 year old female with a history of anxiety, asthma, lupus, who presents to the ED today complaining of 5 out of 10 right hand vein swelling that began this afternoon. Patient's is doing most of the speaking, he states patient is on treatment for lupus and the doctor had told him if she has any pain swelling to the hand to come to the hospital and be checked for blood clot. also states they did a google search which showed patient could have a blood clot to the right upper extremity. Patient denies any injury. She is not giving me much information. She appears sleepy. Review of Systems Review of Systems Constitutional: Denies fever or chills [] Eyes: Denies change in visual acuity, redness, or eye pain [] HENT: Denies nasal congestion or sore throat [] Respiratory: Denies cough or shortness of breath [] Cardiovascular: No additional information not addressed in HPI [] GI: Denies abdominal pain, nausea, vomiting, bloody stools or diarrhea [] : Denies dysuria or hematuria [] Musculoskeletal: Reports right hand swelling and pain Integument: Denies rash or skin lesions [] Neurologic: Denies headache, focal weakness or sensory changes [] All other systems were reviewed and found to be within normal limits, except as documented in this note. Allergies Allergies Allergies Coded Allergies Type Severity Reaction Last Updated Verified No Known Drug Allergies 11/10/17 No Physical Exam Physical Exam Constitutional: Well developed, well nourished, no acute distress, non-toxic appearance. [] HENT: Normocephalic, atraumatic, bilateral external ears normal, oropharynx moist, no oral exudates, nose normal. [] Eyes: PERRLA, EOMI, conjunctiva normal, no discharge. [] Neck: Normal range of motion, no tenderness, supple, no stridor. [] Cardiovascular:Heart rate regular rhythm, no murmur [] Lungs & Thorax: Bilateral breath sounds clear to auscultation [] Abdomen: Bowel sounds normal, soft, no tenderness, no masses, no pulsatile masses. [] Skin: Warm, dry, no erythema, no rash. [] Back: Right hand with no obvious deformity. No obvious vein swelling noted, no erythema. Full range of motion to the right hand, adequate radial, medial, ulnar sensation to the right hand. +2 right radial pulse. Cap refill less than 2 seconds the right upper extremity. Extremities: No tenderness, no cyanosis, no clubbing, ROM intact, no edema. [] Neurologic: Alert and oriented X 3, normal motor function, normal sensory function, no focal deficits noted. [] Psychologic: Flat affect. Current Patient Data Vital Signs Vital Signs Date Time Temp Pulse Resp B/P (MAP) Pulse Ox O2 Delivery O2 Flow Rate FiO2 09/21/19 17:02 98.5 57 16 129/77 (94) 16 Room Air 98.5 EKG EKG [] Radiology/Procedures Radiology/Procedures [] Course & Med Decision Making Course & Med Decision Making Pertinent Labs and Imaging studies reviewed. (See chart for details) This is a 44-year-old female patient presenting to the ED today with right hand " vein swelling" and pain that began today. Patient requesting to be tested for DVT, currently on baby aspirin. Preliminary read RUE venous Doppler is negative. Discharge to home. Follow-up with her own PCP in 1 to 2 weeks. Dragon Disclaimer Dragon Disclaimer This electronic medical record was generated, in whole or in part, using a voice recognition dictation system. Departure Departure Impression: Primary Impression: Hand pain, right Disposition: 01 HOME, SELF-CARE Condition: STABLE Referrals: DANIA PANDEY MD (PCP) follow up in 1-2 weeks Patient Instructions: Musculoskeletal Pain Additional Instructions: Your ultrasound of the right upper extremity is negative for any blood clot. Try to ice and elevate the extremity. Continue taking your aspirin. Follow-up with your doctor in 1 to 2 weeks ZOHAIB ALFREDO APRN Sep 21, 2019 17:25
--- NOTE | 2019-09-21 17:54 | RAD ---
Right upper extremity venous duplex Doppler ultrasound HISTORY: Right upper extremity pain and swelling. Right upper extremity pain. FINDINGS: Patent color Doppler blood flow without evidence of thrombosis of the right internal jugular vein and subclavian vein with cardiac pulsatility as expected. No DVT evident with compressibility and patent color Doppler blood flow and augmentation of blood flow the right axillary vein, brachial veins. No thrombosis evident with compressibility and patent color Doppler blood flow and augmentation of flow the right basilic vein and cephalic vein. No DVT evident with patent color Doppler blood of the right radial and ulnar veins. IMPRESSION: Negative right upper extremity for DVT. Electronically signed by: Serge Rosas MD (09/21/2019 5:51 PM) [id number]
== END 2019-09-21 18:01 | disposition home or self-care (01) ==
LOC: ER 16:28
DX: M79.641 Pain in right hand (principal); R22.31 Localized swelling, mass and lump, right upper limb; F17.200 Nicotine dependence, unspecified, uncomplicated
CPT/HCPCS: 93971; 99284

== ENCOUNTER 2019-12-14 23:15 | Emergency (ER) | payer BC ==
[~2019-12-14] VITALS: Ht 152.4 cm; Wt 41.0 kg
[2019-12-14 23:35] VITALS: BP 130/88
[2019-12-14] MEDS ORDERED: HYDROcodone/APAP 7.5/325MG 1 TAB TABLET PO ONE (23:55)
[2019-12-15] MEDS ORDERED: ACET-704 PO (00:24)
--- NOTE | 2019-12-15 00:24 | PHYS DOC ---
Past Medical History Past Medical History: Anxiety, Arthritis, Kidney Infection, Kidney Stone Additional Past Medical Histor: lupus Past Surgical History: , Tubal ligation Smoking Status: Current Every Day Smoker Alcohol Use: Occasionally Drug Use: None General Adult EDM: Chief Complaint: LOWEREXTREMITY INJURY HPI: HPI: Patient is a 44 year old female who presents with complaint of right foot pain. Patient states that she had been moving a TV earlier in the evening at about 10 PM and TV had fallen over and landed on her right foot. Patient reports severe pain in the foot with worsening pain with weightbearing. Patient denies any other injuries. [] Review of Systems: Review of Systems: Constitutional: Denies fever or chills. [] Respiratory: Denies cough or shortness of breath. [] Cardiovascular: Denies chest pain or edema. [] Musculoskeletal: Complains of right foot pain. [] Integument: Denies rash. [] Neurologic: Denies headache, focal weakness or sensory changes. [] Heart Score: Risk Factors: Risk Factors: DM, Current or recent (<one month) smoker, HTN, HLP, family history of CAD, obesity. Risk Scores: Score 0 - 3: 2.5% MACE over next 6 weeks - Discharge Home Score 4 - 6: 20.3% MACE over next 6 weeks - Admit for Clinical Observation Score 7 - 10: 72.7% MACE over next 6 weeks - Early Invasive Strategies Current Medications: Current Medications Medications (Trade) Dose Ordered Sig/Keo Start Time Stop Time Status Last Admin Dose Admin Acetaminophen/ Hydrocodone Bitart (Lortab 7.5/325) 1 tab 1X ONCE 12/14/19 23:55 12/14/19 23:56 DC 12/14/19 23:55 1 TAB Allergies: Allergies: Allergies Coded Allergies Type Severity Reaction Last Updated Verified No Known Drug Allergies 11/10/17 No Physical Exam: PE: Constitutional: Well developed, well nourished, no acute distress, non-toxic appearance. [] Cardiovascular: Regular rate and rhythm [] Lungs & Thorax: Bilateral breath sounds clear to auscultation [] Skin: Warm, dry, no erythema, no rash. [] Extremities: Examination of right foot demonstrates soft tissue swelling and ecchymosis to the dorsal lateral aspect of the foot as well as over the great toe. The foot is diffusely tender to palpation. [] Neurologic: Alert and oriented X 3, no focal deficits noted. [] Current Patient Data: Vital Signs: Vital Signs Date Time Temp Pulse Resp B/P (MAP) Pulse Ox O2 Delivery O2 Flow Rate FiO2 12/14/19 23:55 16 98 12/14/19 23:35 98.1 76 130/88 (102) Room Air 98.1 EKG: EKG: [] Radiology/Procedures: Radiology/Procedures: [] Impression: PROCEDURE: FOOT RIGHT 3V EXAM: AP, oblique and lateral views of the right foot DATE: 12/14/2019 11:42 PM INDICATION: Reason: dropped TV on foot / Spl. Instructions: / History: COMPARISON: No Prior FINDINGS: No evidence of acute fracture or dislocation. Mild hallux valgus. Calcaneal enthesopathy. Joint spaces are grossly preserved. IMPRESSION: No evidence of acute fracture or dislocation. If there is persistent clinical concern for fracture, follow-up radiographs in 10-14 days is recommended. Electronically signed by: Vj Dow MD (12/15/2019 1:30 AM) [facility] Course & Med Decision Making: Course & Med Decision Making Pertinent Labs and Imaging studies reviewed. (See chart for details) [] Dragon Disclaimer: Dragon Disclaimer: This electronic medical record was generated, in whole or in part, using a voice recognition dictation system. Departure Departure Impression: Primary Impression: Contusion of right foot Qualified Codes: S90.31XA - Contusion of right foot, initial encounter Disposition: HOME, SELF-CARE Condition: STABLE Referrals: DANIA PANDEY MD (PCP) Patient Instructions: Foot Contusion Scripts Acetaminophen With Codeine (TYLENOL WITH CODEINE #3 TABLET) 1 Each Tablet 1 TAB PO PRN Q6HRS PRN for PAIN, #12 TAB Prov: MATT RODRIGUEZ Jr. DO 12/15/19 MATT RODRIGUEZ Jr. DO Dec 15, 2019 00:24
--- NOTE | 2019-12-15 01:33 | RAD ---
EXAM: AP, oblique and lateral views of the right foot DATE: 12/14/2019 11:42 PM INDICATION: Reason: dropped TV on foot / Spl. Instructions: / History: COMPARISON: No Prior FINDINGS: No evidence of acute fracture or dislocation. Mild hallux valgus. Calcaneal enthesopathy. Joint spaces are grossly preserved. IMPRESSION: No evidence of acute fracture or dislocation. If there is persistent clinical concern for fracture, follow-up radiographs in 10-14 days is recommended. Electronically signed by: Vj Dow MD (12/15/2019 1:30 AM) [facility]
== END 2019-12-15 00:26 | disposition home or self-care (01) ==
LOC: ER 23:15
DX: S90.31XA Contusion of right foot, initial encounter (principal); F17.200 Nicotine dependence, unspecified, uncomplicated; Z87.442 Personal history of urinary calculi; W20.8XXA Other cause of strike by thrown, projected or falling object, initial encounter; Y93.89 Activity, other specified; Y92.89 Other specified places as the place of occurrence of the external cause; Y99.8 Other external cause status
CPT/HCPCS: 73630; 99283

== ENCOUNTER 2020-02-14 12:37 | Emergency (ER) | payer BC ==
[~2020-02-14 12:37] MED LIST changes: +ACET-704 PO
== END 2020-02-14 13:14 | disposition left against medical advice (07) ==
LOC: ER 12:37
DX: R10.9 Unspecified abdominal pain (principal); Z53.21 Procedure and treatment not carried out due to patient leaving prior to being seen by health care provider

== ENCOUNTER 2020-09-30 08:19 | Emergency (ER) | payer BC ==
[~2020-09-30] VITALS: Ht 152.4 cm; Wt 41.8 kg
[2020-09-30 08:40] VITALS: BP 132/76
[2020-09-30] MEDS ORDERED: oxyCODONE/APAP 5/325 1 TAB TABLET PO ONE (08:45)
[2020-09-30] MEDS ORDERED: KETOROLAC 15 MG/ML VIAL. IM ONE (08:45)
[2020-09-30] MEDS ORDERED: predniSONE 20 MG TABLET PO ONE (08:45)
--- NOTE | 2020-09-30 09:18 | PHYS DOC ---
Past Medical History Past Medical History: Anxiety, Arthritis, Kidney Infection, Kidney Stone Additional Past Medical Histor: lupus Past Surgical History: Cholecystectomy, , Tubal ligation Smoking Status: Current Every Day Smoker Alcohol Use: Occasionally Drug Use: None Adult General Chief Complaint Chief Complaint: KNEE SWELLING HPI HPI Patient is a 45 year old female with past medical history of anxiety and lupus that presents emergency department complaining of new onset of left-sided knee pain and swelling. Patient states that for the last 3 days she noted worsening pain and significant swelling primarily in the left knee joint. Patient also complains of some pain in the right knee but has muscles in the feet. Patient denies any injury to the area. Denies any fever or chills. States that this is consistent with her prior episodes of lupus flare. Does state that she took a small dose of prednisone yesterday Review of Systems Review of Systems Constitutional: Denies fever or chills [] Eyes: Denies change in visual acuity, redness, or eye pain [] HENT: Denies nasal congestion or sore throat [] Respiratory: Denies cough or shortness of breath [] Cardiovascular: No additional information not addressed in HPI [] GI: Denies abdominal pain, nausea, vomiting, bloody stools or diarrhea [] : Denies dysuria or hematuria [] Musculoskeletal: Denies back pain or joint pain [] Integument: Denies rash or skin lesions [] Neurologic: Denies headache, focal weakness or sensory changes [] Endocrine: Denies polyuria or polydipsia [] All other systems were reviewed and found to be within normal limits, except as documented in this note. Current Medications Current Medications Current Medications Medications (Trade) Dose Ordered Sig/Keo Start Time Stop Time Status Last Admin Dose Admin Ketorolac Tromethamine (Toradol 15mg Vial) 15 mg 1X ONCE 09/30/20 08:45 09/30/20 08:52 DC 09/30/20 09:13 15 MG Oxycodone/ Acetaminophen (Percocet 5/325) 1 tab 1X ONCE 09/30/20 08:45 09/30/20 08:52 DC 09/30/20 09:13 1 TAB Prednisone (Prednisone) 60 mg 1X ONCE 09/30/20 08:45 09/30/20 08:52 DC 09/30/20 09:13 60 MG Allergies Allergies Allergies Coded Allergies Type Severity Reaction Last Updated Verified No Known Drug Allergies 4/30/18 No Physical Exam Physical Exam Constitutional: Well developed, well nourished, no acute distress, non-toxic appearance. [] HENT: Normocephalic, atraumatic, bilateral external ears normal, oropharynx moist, no oral exudates, nose normal. [] Eyes: PERRLA, EOMI, conjunctiva normal, no discharge. [] Neck: Normal range of motion, no tenderness, supple, no stridor. [] Cardiovascular:Heart rate regular rhythm, no murmur [] Lungs & Thorax: Bilateral breath sounds clear to auscultation [] Abdomen: Bowel sounds normal, soft, no tenderness, no masses, no pulsatile masses. [] Skin: Warm, dry, no erythema, no rash. [] Back: No tenderness, no CVA tenderness. [] Extremities: Significant tenderness and swelling over the left knee joint bilaterally without any obvious skin change or warmth. No calf pain or tenderness. No fevers or chills no cyanosis, no clubbing, ROM intact, [] Neurologic: Alert and oriented X 3, normal motor function, normal sensory function, no focal deficits noted. [] Psychologic: Affect normal, judgement normal, mood normal. [] Current Patient Data Vital Signs Vital Signs Date Time Temp Pulse Resp B/P (MAP) Pulse Ox O2 Delivery O2 Flow Rate FiO2 09/30/20 09:13 20 09/30/20 08:40 97.7 80 132/76 (94) 95 Room Air 97.7 EKG EKG [] Radiology/Procedures Radiology/Procedures [] Course & Med Decision Making Course & Med Decision Making Pertinent Labs and Imaging studies reviewed. (See chart for details) 45F with apparent left knee pain and swelling most consistent with an acute lupus arthritis. Patient has that she has not seen buyer renter in 6 months. At this time there is no suspicion for acute fracture or DVT or septic arthritis without evidence of fevers or worsening lower extremity changes. At this time will treat symptomatically and discharged with primary care follow-up. Dragon Disclaimer Dragon Disclaimer This electronic medical record was generated, in whole or in part, using a voice recognition dictation system. Departure Departure Impression: Primary Impression: Exacerbation of systemic lupus Additional Impression: Swelling of knee joint, left Disposition: 01 DC HOME SELF CARE/HOMELESS Condition: GOOD Referrals: JESI SOTELO MD Patient Instructions: Knee Effusion, Knee Pain, Lupus Additional Instructions: EMERGENCY DEPARTMENT GENERAL DISCHARGE INSTRUCTIONS Thank you for coming to [facility] Emergency Department (ED) today and trusting us with you care. We trust that you had a positive experience in our Emergency Department. If you wish to speak to the department management, you may call the Director at [phone]. YOUR FOLLOW UP INSTRUCTIONS ARE FOLLOWS: 1. Do you have a private Doctor? If you do not have a private doctor, please ask for a resource list of physicians or clinics that may be able to assist you with follow up care. 2. The Emergency Physicain has interpreted your x-rays. The X-Ray specialist will also review them. If there is a change in the findings, you will be notified in 48 hours when at all possible. 3. A lab test or culture has been done, your results will be reviewed and you will be notified if you need a change in treatment. ADDITIONAL INSTRUCTIONS AND INFORMATION: 1. Your care today has been supervised by a physician who is specially trained in emergency care. Many problems require more than one evaluation for a complete diagnosis and treatment. We recommend that you schedule your follow up appointment as recommended to ensure complete treatment of you illness or injury. If you are unable to obtain follow up care and continue to have a problem, or if your condition worsens, we recommend that you return to the ED. 2. We are not able to safely determine your condition over the phone nor are we able to give sound medical advice over the phone. For these safety reasons, if you call for medical advice we will ask you to come to the ED for further evaluation. 3. If you have any questions regarding these discharge instructions please call the ED at [phone]. SAFETY INFORMATION: In the interest of safety, wellness, and injury prevention; we encourage you to wear your sealbelt, if you smoke; quite smoking, and we encourage family to use a protective helmet for bicycling and other sporting events that present an increased risk for head injury. IF YOUR SYMPTOMS WORSEN OR NEW SYMPTOMS DEVELOP, OR YOU HAVE CONCERNS ABOUT YOUR CONDITION; OR IF YOUR CONDITION WORSENS WHILE YOU ARE WAITING FOR YOUR FOLLOW UP APPOINTMENT; EITHER CONTACT YOUR PRIMARY CARE DOCTOR, THE PHYSICIAN WHOSE NAME AND NUMBER YOU WERE GIVEN, OR RETURN TO THE ED IMMEDIATELY. Problem Qualifiers LISA COLLADO MD Sep 30, 2020 09:18
== END 2020-09-30 10:02 | disposition home or self-care (01) ==
LOC: ER 08:19
DX: M32.9 Systemic lupus erythematosus, unspecified (principal); R22.42 Localized swelling, mass and lump, left lower limb; M25.562 Pain in left knee; F17.200 Nicotine dependence, unspecified, uncomplicated; Z98.51 Tubal ligation status; Z90.49 Acquired absence of other specified parts of digestive tract
CPT/HCPCS: 96372; 99283; J1885; J7512

== ENCOUNTER 2021-05-19 03:12 | Emergency (ER) | payer BC ==
[~2021-05-19] VITALS: Ht 152.4 cm; Wt 45.4 kg
[~2021-05-19 03:12] MED LIST changes: +DOXY-181 PO; -DOXY100C14 PO
--- NOTE | 2021-05-19 03:53 | PHYS DOC ---
Past Medical History Past Medical History: Anxiety, Arthritis, Kidney Infection, Kidney Stone Additional Past Medical Histor: lupus Past Surgical History: Cholecystectomy, , Tubal ligation Smoking Status: Current Every Day Smoker Alcohol Use: Occasionally Drug Use: None General Adult EDM: Chief Complaint: FLANK PAIN HPI: HPI: Patient is a 45-year-old female with past medical history of lupus and multiple kidney infections presenting for left-sided flank/lower abdominal pain that began yesterday she reports the pain as sharp, constant, nonradiating, and 10 out of 10. She reports that moving makes her pain worse and laying on her right side and use of heating pad tends to make it better. She denies any recent dysuria, hematuria, nausea/vomiting or diarrhea/constipation. She states this feels a lot like her kidney infections in the past. She took some Tylenol yesterday for the pain without much relief. Review of Systems: Review of Systems: Constitutional: Denies fever or chills Eyes: Denies redness or eye pain HENT: Denies nasal congestion or sore throat Respiratory: Denies cough or shortness of breath Cardiovascular: Denies chest pain or palpitations GI: Denies nausea or vomiting; reports flank pain/LLQ pain : Denies dysuria or hematuria Musculoskeletal: Denies joint pain; reports left flank/back pain Integument: Denies rash or skin lesions Neurologic: Denies headache, focal weakness or sensory changes Complete systems were reviewed and found to be within normal limits, except as documented in this note. Heart Score: C/O Chest Pain: N/A Allergies: Allergies: Allergies Coded Allergies Type Severity Reaction Last Updated Verified No Known Drug Allergies 11/10/17 No Physical Exam: PE: Constitutional: Well developed, well nourished, non-toxic appearance HENT: Normocephalic, atraumatic Eyes: Conjunctiva normal, no discharge Neck: Normal range of motion, supple Lungs & Thorax: No respiratory distress, equal chest rise and fall Abdomen: Soft, tender to palpation in left lower quadrant, no rebound or guarding Skin: Warm, dry, no rash Back: No tenderness, left sided CVA tenderness Extremities: No tenderness, no edema Neurologic: Alert and oriented X 3, no focal deficits noted Psychologic: Affect normal, judgment normal Radiology/Procedures: Radiology/Procedures: PROCEDURE: CT ABDOMEN PELVIS WO CONTRAST PQRS Compliance Statement: One or more of the following individualized dose reduction techniques were utilized for this examination: 1. Automated exposure control 2. Adjustment of the mA and/or kV according to patient size 3. Use of iterative reconstruction technique CT abdomen/pelvis without contrast 05/19/2021 4:17 AM INDICATION: Left flank pain COMPARISON: CT abdomen/pelvis 07/02/2019 TECHNIQUE: Multiple axial CT images of the abdomen and pelvis were obtained without intravenous contrast. Coronal and sagittal reformats are provided. FINDINGS: There is a 4 mm subpleural solid noncalcified pulmonary nodule in the lateral left lower lobe (image 23). Heart size is within normal limits. Evaluation of the solid abdominal viscera is limited by lack of intravenous contrast. No suspicious hepatic masses are identified. Spleen, bilateral adrenal glands, and pancreas are normal in appearance. Cholecystectomy changes. The abdominal aorta is normal in course and caliber. There are no pathologically enlarged lymph nodes in the abdomen and pelvis. There is no abdominal free fluid. There is no free intraperitoneal air. Small and large bowel are normal in caliber. There is no evidence for bowel obstruction. There are no pericolonic inflammatory changes. A normal, nondilated appendix is visualized without adjacent inflammatory changes. Extensive calcification identified along the mid to of the kidneys suggestive of medullary nephrocalcinosis as may be seen with hyperparathyroidism, medullary sponge kidney or renal tubular acidosis. No hydronephrosis. No calculi within the ureters or urinary bladder. Uterus and adnexa are normal by CT. No suspicious osseous abnormality. Phleboliths identified within the pelvis. IMPRESSION: 1. 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 2. No acute abnormality identified within the abdomen and pelvis. 3. 4 mm subpleural nodule in the lateral left lower lobe. Findings are stable from prior examination and presumed benign. Course & Med Decision Making: Course & Med Decision Making Pertinent Labs and Imaging studies reviewed. (See chart for details) Patient is a 45-year-old female with past medical history of lupus and multiple kidney infections presenting for left flank and lower abdominal pain. 1 L normal saline and Toradol given. CBC significant for leukocytosis of 14.4. CMP significant for slight hypokalemia. Urine showed large amounts of blood, leukocyte esterase, and too numerous to count WBCs. Hypokalemia addressed. IV Rocephin given to address leukocytosis and infectious urine. CT abd/pelvis demonstrated nephrocalcinosis, but no calculi within the ureters or urinary bladder. Stable pulmonary nodule noted. A copy of CT results given to patient to give to PCP for further evaluation and possible future reimaging. Will give prescription for Keflex and pain medications for home. Patient stable for discharge with outpatient follow-up with PCP. Discussed findings and plan with patient, who acknowledges understanding and agreement. Kelli Disclaimer: Kelli Disclaimer: This electronic medical record was generated, in whole or in part, using a voice recognition dictation system. Departure Departure Impression: Primary Impression: Pyelonephritis Additional Impressions: Pulmonary nodule Hypokalemia Disposition: HOME / SELF CARE / HOMELESS Condition: STABLE Referrals: NO PCP (PCP) Patient Instructions: Hypokalemia, Potassium Content of Foods, Pulmonary Nodule, [id number], Pyelonephritis, Adult, [id number] Additional Instructions: Increase fluid hydration. Increase diet to include foods that are rich in potassium. Take antibiotic to completion. Give copy of your CT results to your family physician for further evaluation. Scripts Oxycodone/Apap 5-325 (PERCOCET 5-325 MG TABLET ) 1 Each Tablet 0.5-1 TAB PO PRN Q6HRS PRN for PAIN, #14 TAB 0 Refills Prov: SHAE BETANCOURT DO 05/19/21 Cephalexin (KEFLEX) 500 Mg Capsule 1 CAP PO TID for 7 Days, #21 CAP Prov: SHAE BETANCOURT DO 05/19/21 SHAE BETANCOURT DO May 19, 2021 03:53
[2021-05-19 04:21] LABS: BASO % 0 % (0-3); EOS % 0 % (0-3); HEMATOCRIT 48.5 % (36.0-47.0); HEMOGLOBIN 15.9 g/dL (12.0-15.5); LYMPH # 0.6 x10^3/uL (1.0-4.8); LYMPH % 4 % (24-48); MEAN CORPUSCULAR HEMOGLOBIN 30 pg (25-35); MEAN CORPUSCULAR HGB CONC 33 g/dL (31-37); MEAN CORPUSCULAR VOLUME 92 fL (79-100); MONO # 0.7 x10^3/uL (0.0-1.1); MONO % 5 % (0-9); NEUT # 13.1 x10^3/uL (1.8-7.7); NEUT % 91 % (31-73); PLATELET COUNT 126 x10^3/uL (140-400); RED BLOOD COUNT 5.28 x10^6/uL (3.50-5.40); RED CELL DISTRIBUTION WIDTH 13.1 % (11.5-14.5); WHITE BLOOD COUNT 14.4 x10^3/uL (4.0-11.0)
[2021-05-19] MEDS ORDERED: IV NORMAL SALINE 1000ML BAG 1,000 ML IV ONE (04:30)
[2021-05-19] MEDS ORDERED: METOCLOPRAMIDE HCL 10 MG/2 ML VIAL. IVP ONE (04:30)
[2021-05-19] MEDS ORDERED: KETOROLAC 15 MG/ML VIAL. IVP ONE (04:30)
[2021-05-19 04:31] LABS: CALCIUM 9.3 mg/dL (8.5-10.1); CREATININE 1.1 mg/dL (0.6-1.0); GFR 53.5; POTASSIUM 3.3 mmol/L (3.5-5.1)
[2021-05-19 04:36] LABS: ALBUMIN 2.6 g/dL (3.4-5.0); ALBUMIN/GLOBULIN RATIO 0.5 (1.0-1.7); MAGNESIUM 1.9 mg/dL (1.8-2.4); TOTAL BILIRUBIN 0.5 mg/dL (0.2-1.0); TOTAL PROTEIN 8.1 g/dL (6.4-8.2)
[2021-05-19 04:38] LABS: BILIRUBIN,URINE NEGATIVE (NEG); CLARITY,URINE CLEAR; COLOR,URINE YELLOW; NITRITE,URINE NEGATIVE (NEG); PH,URINE 7.5 (<5.0-8.0); PROTEIN,URINE 100 mg/dL (NEG-TRACE); UROBILINOGEN,URINE 0.2 mg/dL (0.2 mg/dL)
[2021-05-19 04:46] LABS: BACTERIA,URINE FEW /HPF (0-FEW); RBC,URINE 0 /HPF (0-2); WBC,URINE TNTC /HPF (0-4)
[2021-05-19 04:51] LABS: % BANDS 5 % (0-9); % LYMPHS 7 % (24-48); % MONOS 3 % (0-10); % SEGS 85 % (35-66); PLT ESTIMATE DECREASED (ADEQUATE); TOXIC GRANULATION SLIGHT
--- NOTE | 2021-05-19 05:01 | RAD ---
PQRS Compliance Statement: One or more of the following individualized dose reduction techniques were utilized for this examinat ion: 1. Automated exposure control 2. Adjustment of the mA and/or kV according to patient size 3. Use of iterative reconstruction technique CT abdomen/pelvis without contrast 05/19/2021 4:17 AM INDICATION: Left flank pain COMPARISON: CT abdomen/pelvis 07/02/2019 TECHNIQUE: Multiple axial CT images of the abdomen and pelvis were obtained without intravenous contr ast. Coronal and sagittal reformats are provided. FINDINGS: There is a 4 mm subpleural solid noncalcified pulmonary nodule in the lateral left lower lobe (image 23). Heart size is within normal limits. Evaluation of the solid abdominal viscera is limited by lack of intravenous contrast. No suspicious hepatic masses are identified. Spleen, bilateral adrenal glands, and pancreas are genaro l in appearance. Cholecystectomy changes. The abdominal aorta is normal in course and caliber. There are no pathologically enlarged lymph nodes in the abdomen and pelvis. There is no abdominal free fluid. There is no free intraperitoneal air. Small and large bowel are normal in caliber. There is no evidence for bowel obstruction. There are no pericolonic inflammatory changes. A normal, nondilated appendix is visualized without adjacent infla mmatory changes. Extensive calcification identified along the mid to of the kidneys suggestive of medullary nephrocalc inosis as may be seen with hyperparathyroidism, medullary sponge kidney or renal tubular acidosis. No hydronephrosis. No calculi within the ureters or urinary bladder. Uterus and adnexa are normal by CT . No suspicious osseous abnormality. Phleboliths identified within the pelvis. IMPRESSION: 1. 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 2. No acute abnormality identified within the abdomen and pelvis. 3. 4 mm subpleural nodule in the lateral left lower lobe. Findings are stable from prior examination and presumed benign. Electronically signed by: Madhuri Romo MD (05/19/2021 4:58 AM) [facility]
[2021-05-19] MEDS ORDERED: OXYC1TAB15 PO (05:18)
[2021-05-19] MEDS ORDERED: CEPH500C PO (05:18)
[2021-05-19 05:30] VITALS: BP 94/59
[2021-05-19] MEDS ORDERED: cefTRIAXone IV Push 1 GM VIAL. IVP ONE (05:30)
[2021-05-19] MEDS ORDERED: POTASSIUM CHLORIDE 20 MEQ TABLET.ER. PO ONE (05:30)
[2021-05-19] MEDS ORDERED: fentaNYL PF VIAL 100 MCG/2 ML VIAL IV ONE (06:00)
== END 2021-05-19 05:40 | disposition home or self-care (01) ==
LOC: ER 03:12
DX: N12 Tubulo-interstitial nephritis, not specified as acute or chronic (principal); R91.1 Solitary pulmonary nodule; E87.6 Hypokalemia; M19.90 Unspecified osteoarthritis, unspecified site; F17.200 Nicotine dependence, unspecified, uncomplicated; Z87.442 Personal history of urinary calculi; Z90.49 Acquired absence of other specified parts of digestive tract; Z98.51 Tubal ligation status; Z98.890 Other specified postprocedural states
CPT/HCPCS: 36415; 74176; 80053; 81001; 83690; 83735; 85007; 85025; 96361; 96374; 96375; 99284; J0696; J1885; J2765; J3010; J7030